=== PATIENT | female | born 1950 | race Caucasian/White ===

== ENCOUNTER 2022-08-14 14:47 | Outpatient (REF) | payer MEDICARE, SELFPAY ==
[2022-08-14 18:07] LABS: Free T4 (Free Thyroxine) 0.81 ng/dL (0.71-1.85); Thyroid Stimulating Hormone 1.43 uIU/mL (0.32-4.0)
== END 2022-08-14 14:48 | disposition home or self-care (01) ==
LOC: HO.LAB 14:47
PROVIDERS: PCP Nurse Practitioner; Visit Provider Internal Medicine
DX: E04.2 Nontoxic multinodular goiter (principal)
CPT/HCPCS: 36415; 84439; 84443; 99202

== ENCOUNTER 2022-11-27 08:38 | Outpatient (REF) | payer MEDICARE, SELFPAY ==
--- NOTE | 2022-11-27 09:46 | P.BOP_ITS ---
Brief Operative Note Date of Service: 11/27/22 Pre-op diagnosis: Multinodular Thyroid Procedure: This is doctor Neva Garrett. This is an ultrasound-guided fine-needle aspiration report. Indication: Multinodular Thyroid Porcedure: Procedure was explained to the patient. Alternatives, the risk and benefits were discussed. Written consent was obtained. A time-out was also obtained. After sterile preparation, 1 ml of 1% lidocaine solution was applied subcutaneously for anesthetic effect. Then Fine-needle aspiration of a left mid pole 1.2 cm thyroid nodule was performed using direct ultrasound guidance to confirm accurate needle placement. Four aspirations were made using 27 gauge needles. An additional two aspirations were made using 25 guage needles. Samples were submitted for cytology. One pass was dedicated for [employer] sequencing authorizer testing. The patient tolerated the procedure well. Aftercare instructions were provided. Impression: Uncomplicated fine needle aspiration biopsy of a left mid pole 1.2 cm thyroid nodule under ultrasound guidance. Surgeon: Neva Garrett, DO Was an Profile Saw Setup Operator used for this Procedure?: No Estimated blood loss (mL): 0
[2022-11-27] MEDS: Lidocaine HCl 1 % MPF 5 ML VIAL 1 ML SUBCUT (11:06)
== END 2022-11-27 08:39 | disposition home or self-care (01) ==
LOC: HO.US 08:38
PROVIDERS: PCP Nurse Practitioner; Visit Provider Internal Medicine
DX: E04.2 Nontoxic multinodular goiter (principal)
CPT/HCPCS: 10005; 88172; 88173; 88177

== ENCOUNTER → 2022-11-27 08:38 | Outpatient (BNV) | payer MEDICARE, SELFPAY | PROVIDERS: PCP Nurse Practitioner; Visit Provider Internal Medicine | DX: E04.2 Nontoxic multinodular goiter (principal) | CPT/HCPCS: 10005 ==

== ENCOUNTER 2022-12-11 12:43 | Outpatient (AMB) | payer MEDICARE, SELFPAY ==
--- NOTE | 2022-12-11 12:43 | A.OFFVIS_ITS ---
Intake Intake Visit Reasons: FNA results Intake Note: FNA results follow up. Animal Shelter Supervisor Required: No Allergies nickel Allergy (Mild, Uncoded 12/11/22 13:10) Rash Medication List - Last Reconciled 12/11/22 by Neva Garrett DO amlodipine mg PO aspirin 81 mg PO DAILY carvedilol mg PO cholecalciferol (vitamin D3) 25 mcg PO DAILY isosorbide mononitrate ER mg PO losartan mg PO nitroglycerin mg sublingual pantoprazole mg PO rosuvastatin mg PO varicella-zoster gE-AS01B (PF) 50 mcg/0.5 mL (Shingrix (PF)) IM vitamin B complex 1 cap PO DAILY HPI HPI Comments History of Present Illness Details 72 YO Female with a PMHx of CAD who is seen in F/U for a thyroid nodule. She was complaining in early 2021 of a tightness in her neck with a pressure like sensation while lying flat. This prompted workup by her PCP, and an US of the thyroid which revealed a solitary 1.2 cm L lobe nodule. She was subsequently referred to Endocrinology. 11/27/2022 she underwent FNA biopsy of the left mid pole 1.2 cm thyroid nodule, with benign cytology. She does report the pressure in her neck while lying flat, but otherwise denies any compressive symptoms. She reports hair loss, dry skin and weight gain. She denies any symptoms of hyperthyroidism. She denies any personal history of head or neck irradiation. She denies any Family history of thyroid cancer. TFTs at goal. [facility] Medical History CAD (coronary artery disease) Heart murmur History of endometrial cancer Multinodular thyroid Surgical History Hx of cataract Hx of gastric bypass Hx of hysterectomy, total Hx of tonsillectomy Family History Father Lung cancer Mother Heart failure Paternal Aunt Thyroid disease Paternal Grandmother Thyroid disease Social History Alcohol intake: current Alcohol intake frequency: holidays/special occasions only Patient Tobacco Use Status: Former Tobacco user Quit Date: 2005 Assessment & Plan Assessment & Plan (1) Multinodular thyroid: Code(s): E04.2 - Nontoxic multinodular goiter Plan: Underwent FNA biopsy of her left mid pole 1.2 cm thyroid nodule with benign cytology. Will F/U in 1 years time for surveillance scans. All of her questions were answered. She is in agreement with this plan of care. I spent 20 minutes in reviewing the record, seeing the patient and documenting in the medical record, including 5 minutes on the phone with the Patient. Telehealth Telehealth Location of provider rendering services: practice address Location of patient: address on file Patient Identification confirmed using: Name, : Yes Telehealth method: voice only Patient verbally consented to treatment: Yes Patient verbally consented to billing insurance company: Yes Patient informed of any privacy concerns related to visit: Yes Coding Level of Care Code Tele Est Pt Level 3 (46289) Diagnoses Multinodular thyroid E04.2
== END 2022-12-11 15:54 | disposition home or self-care (01) ==
LOC: HO.ENCR 12:43
PROVIDERS: PCP Nurse Practitioner; Visit Provider Internal Medicine
DX: E04.2 Nontoxic multinodular goiter (principal)
CPT/HCPCS: 99441

== ENCOUNTER → 2022-12-11 12:43 | Outpatient (BNVA) | payer MEDICARE, SELFPAY | PROVIDERS: PCP Nurse Practitioner; Visit Provider Internal Medicine ==

== ENCOUNTER 2023-12-14 12:49 | Outpatient (REF) | payer MEDICARE, SELFPAY ==
[2023-12-14 15:11] LABS: Thyroid Stimulating Hormone 1.13 uIU/mL (0.32-4.0)
== END 2023-12-14 12:50 | disposition home or self-care (01) ==
LOC: HO.LAB 12:49
PROVIDERS: PCP Nurse Practitioner; Visit Provider Internal Medicine Endocrinology, Diabetes & Metabolism
DX: E04.2 Nontoxic multinodular goiter (principal)
CPT/HCPCS: 36415; 84439; 84443; 99212

== ENCOUNTER 2023-12-14 12:49 | Outpatient (AMB) | payer MEDICARE, SELFPAY ==
--- NOTE | 2023-12-14 12:58 | A.OFFVIS_ITS ---
Vital Signs 12/14/23 12:59 Height 5 ft 3 in Weight 191 lb 12.835 oz BMI 34.0 BP 114/60 Blood Pressure Location Rt brachial Position Sitting Pulse 54 Pulse Source Pulse Oximeter Intake Visit Reasons: NON TOXIC MULTI GOITER-conf Intake Note: Patient present today for Non toxic multi goiter follow up visit. Sustainable Agriculture Faculty Required: No Accompanied by: Self / Same As Patient Allergies nickel Allergy (Mild, Uncoded 12/14/23 13:00) Rash Medication List - Last Reconciled 12/14/23 by Cahrly Pierre MD amlodipine mg PO aspirin 81 mg PO DAILY carvedilol mg PO cholecalciferol (vitamin D3) 25 mcg PO DAILY isosorbide mononitrate ER mg PO losartan mg PO nitroglycerin mg sublingual pantoprazole mg PO rosuvastatin mg PO varicella-zoster gE-AS01B (PF) 50 mcg/0.5 mL (Shingrix (PF)) IM vitamin B complex 1 cap PO DAILY HPI Comments Details: 73 YO Female with a PMHx of CAD who is seen in F/U for a thyroid nodule. The patient last saw Dr. Vivas on 12/11/2022 She was complaining in early 2021 of a tightness in her neck with a pressure like sensation while lying flat. This prompted workup by her PCP, and an US of the thyroid which revealed a solitary 1.2 cm L lobe nodule. She was subsequently referred to Endocrinology. 11/27/2022 she underwent FNA biopsy of the left mid pole 1.2 cm thyroid nodule, with benign cytology. She does report the pressure in her neck while lying flat, but otherwise denies any compressive symptoms. She reports hair loss, dry skin and weight gain. She denies any symptoms of hyperthyroidism. She denies any personal history of head or neck irradiation. She denies any Family history of thyroid cancer. TFTs at [facility]. [facility] Medical History CAD (coronary artery disease) Heart murmur History of endometrial cancer Multinodular thyroid Surgical History Hx of cataract Hx of gastric bypass Hx of hysterectomy, total Hx of tonsillectomy Family History Father Lung cancer Mother Heart failure Paternal Aunt Thyroid disease Paternal Grandmother Thyroid disease Social History Alcohol intake: current Alcohol intake frequency: holidays/special occasions only Patient Tobacco Use Status: Former Tobacco user Physical Exam Vital Signs: Last Vital Signs Pulse 54 12/14/23 12:59 BP 114/60 12/14/23 12:59 BMI result Body Mass Index 34.0 Const Other: Thyroid gland is normal size weighs about 15 g. There are no palpable thyroid nodule Assessment & Plan Assessment & Plan (1) Multinodular thyroid: Code(s): E04.2 - Nontoxic multinodular goiter Category: Medical Plan: This 73-year-old white female with a history of left thyroid nodule status post FNA with benign cytology. She appears to be clinically euthyroid Plan is to check a TSH and free T4. We will also repeat a thyroid ultrasound. Will have patient follow up with Dr. Mccoy an transit department clerk to his joint or practice who is expert and thyroid ultrasound and biopsy Orders: Orders US thyroid 12/13/23 E04.2 - Nontoxic multinodular goiter Thyroid Stimulating Hormone 12/13/23 E04.2 - Nontoxic multinodular goiter Free T4 (Free Thyroxine) 12/13/23 E04.2 - Nontoxic multinodular goiter Coding Level of Care Code Est Pt Level 3 (21406) Diagnoses Multinodular thyroid E04.2
[2023-12-14 12:59] VITALS: BP 114/60; PULSE 54; BMI 34.0
== END 2023-12-14 13:15 | disposition home or self-care (01) ==
PROVIDERS: PCP Nurse Practitioner; Visit Provider Internal Medicine Endocrinology, Diabetes & Metabolism
DX: E04.2 Nontoxic multinodular goiter (principal)
CPT/HCPCS: 99213

== ENCOUNTER 2023-12-23 09:33 | Outpatient (REF) | payer MEDICARE, SELFPAY ==
--- NOTE | ~2023-12-23 | US_ITS ---
EXAMINATION: US THYROID CLINICAL INFORMATION: Nontoxic multinodular goiter. COMPARISON: Ultrasound-guided fine-needle aspiration 11/27/2022. TECHNIQUE: Linear transducer grayscale and color Doppler examination with attention to the region of the thyroid. FINDINGS: SIZE: Measurements of the thyroid lobes and nodules are given in sagittal, anteroposterior and transverse dimensions respectively. Right Thyroid Lobe: 4.7 x 1.5 x 1.7 cm, volume 6.2 mL. Parenchyma: The gland echotexture is homogeneous. Thyroid vascularity is normal. Left Thyroid Lobe: 4.4 x 1.4 x 1.7 cm, volume 5.7 mL. Parenchyma: The gland echotexture is homogeneous. Thyroid vascularity is normal. Isthmus: 0.3 cm in maximum AP dimension. Estimated total number of nodules greater than or equal to 1 cm: 1. Defect Repairer Glassware nodules are described as follows: 1. Location: Left mid. Size: 1.4 x 1.0 x 1.0 cm, volume 0.7 mL. Nodule characteristics: Composition: Solid (2). Echogenicity: Isoechoic (1). Shape: Not taller than wide (0). Margins: Smooth (0). Echogenic Foci: None (0). ACR TI-RADS total points: 3 ACR TI-RADS category: 3 2. Location: Left mid. Size: 0.6 x 0.5 x 0.5 cm, volume 0.08 mL. Nodule characteristics: Composition: Solid/almost completely solid (2). Echogenicity: Cannot be determined (1). Shape: Not taller than wide (0). Margins: Smooth (0). Echogenic Foci: None (0). ACR TI-RADS total points: 3 ACR TI-RADS category: 3 3. Location: Right mid. Size: 0.7 x 0.4 x 0.8 cm, volume 0.1 mL. Nodule characteristics: Composition: Solid (2). Echogenicity: Hypoechoic (2). Shape: Not taller than wide (0). Margins: Smooth (0). Echogenic Foci: Punctate echogenic foci (3). ACR TI-RADS total points: 7 ACR TI-RADS category: 5 4. Location: Right mid. Size: 0.5 x 0.4 x 0.5 cm, volume 0.05 mL. Nodule characteristics: Composition: Solid (2). Echogenicity: Isoechoic (1). Shape: Not taller than wide (0). Margins: Ill-defined (0). Echogenic Foci: None (0). ACR TI-RADS total points: 3 ACR TI-RADS category: 3 5. Location: Right inferior. Size: 0.6 x 0.4 x 0.5 cm, volume 0.5 mL. Nodule characteristics: Composition: Mixed cystic and solid (1). Echogenicity: Isoechoic (1). Shape: Not taller than wide (0). Margins: Smooth (0). Echogenic Foci: Punctate echogenic foci (3). ACR TI-RADS total points: 5 ACR TI-RADS category: 4 NODES: No lymphadenopathy is seen in the tissue surrounding the thyroid gland. US/US thyroid IMPRESSION: Multinodular goiter with only a single nodule over 1 cm in size. The 1.4 cm TR 3 nodule is under the threshold of 1.5 and there is no recommendation for any follow up. ACR TI-RADS RECOMMENDATION REFERENCE: Ultrasound-guided fine-needle aspiration, followup ultrasound, no further follow up. * TR1 (0 point) and TR2 (2 points): No FNA or follow up. * TR3 (3 points): FNA if more than or equal to 2.5 cm in maximum dimension, followup ultrasound in 1, 3 and 5 years if 1.5 to 2.4 cm in maximum dimension. * TR4 (4-6 points): FNA if more than or equal to 1.5 cm in maximum dimension, followup ultrasound in 1, 2, 3 and 5 years if 1 to 1.4 cm in maximum dimension. * TR5 (more than or equal to 7 points): FNA if more than or equal to 1 cm in maximum dimension, followup ultrasound every year for 5 years if 0.5 to 0.9 cm in maximum dimension. * TR3, TR4 or TR5 nodules that are below the size threshold for followup receive no follow up. Electronically signed by: Parvez Main MD 12/30/2023 03:20 PM EDT
== END 2023-12-23 09:34 | disposition home or self-care (01) ==
LOC: HO.US 09:33
PROVIDERS: PCP Nurse Practitioner; Visit Provider Internal Medicine Endocrinology, Diabetes & Metabolism
DX: E04.2 Nontoxic multinodular goiter (principal)
CPT/HCPCS: 76536

== ENCOUNTER 2024-04-08 09:56 | Outpatient (AMB) | payer MEDICARE, SELFPAY ==
[2024-04-08 09:58] VITALS: BP 132/72; PULSE 60; BMI 34.1
--- NOTE | 2024-04-08 09:58 | MHC.OFFVIS ---
Vital Signs 04/08/24 09:58 Height 5 ft 3 in Weight 192 lb 3.889 oz BMI 34.1 BP 132/72 Blood Pressure Location Lt brachial Position Sitting Pulse 60 Pulse Source Pulse Oximeter Intake Visit Reasons: f/u thyroid nodule-f/u with Dr. Mccoy Intake Note: Patient present today for thyroid nodule follow up visit. Chemistry Associate Required: No Accompanied by: Self / Same As Patient Allergies nickel Allergy (Mild, Uncoded 04/08/24 10:02) Rash HPI Comments Details: 74 YO Female with a PMHx of CAD who is seen in F/U for a thyroid nodule. HPI from prior visit She was complaining in early 2021 of a tightness in her neck with a pressure like sensation while lying flat. This prompted workup by her PCP, and an US of the thyroid which revealed a solitary 1.2 cm L lobe nodule. She was subsequently referred to Endocrinology. 11/27/2022 she underwent FNA biopsy of the left mid pole 1.2 cm thyroid nodule, with benign cytology. Interval history Most recent ultrasound 12/23/2023: I reviewed the images myself which showed left midpole 1.4 cm nodule, that has already been biopsied in 2022, and was benign. Other bilateral subcentimeter nodules including a right midpole 0.7 cm labeled as TR 5 category nodule with punctate echogenic foci. To me this looks more like a spongiform nodule . We will plan to repeat an ultrasound in 1 year. She does report the pressure in her neck while lying flat, but otherwise denies any compressive symptoms. She reports hair loss, dry skin and weight gain. She denies any symptoms of hyperthyroidism. She denies any personal history of head or neck irradiation. She denies any Family history of thyroid cancer. Aunt had thyroid disease on synthroid. Physical exam General: sitting comfortably in no acute distress HEENT: normocephalic/atraumatic, EOM intact, moist oral mucosa Neck: supple, symmetrical, palpable 1 cm left sided nodule , no dorsocervical or supraclavicular fat pads Cardiac: normal heart sounds Pulm: normal breath sounds B/L, no added breath sounds Abd: not distended, no tenderness Extremities: no edema, no signs of myxedema Neuro: AAO x3, Speech: normal, no facial droop, moving all 4 extremities Laboratory Tests 08/14/22 12/14/23 15:50 13:38 TSH 1.43 1.13 Free T4 0.81 0.80 US THYROID 12/23/23 CLINICAL INFORMATION: Nontoxic multinodular goiter. COMPARISON: Ultrasound-guided fine-needle aspiration 11/27/2022. TECHNIQUE: Linear transducer grayscale and color Doppler examination with attention to the region of the thyroid. FINDINGS: SIZE: Measurements of the thyroid lobes and nodules are given in sagittal, anteroposterior and transverse dimensions respectively. Right Thyroid Lobe: 4.7 x 1.5 x 1.7 cm, volume 6.2 mL. Parenchyma: The gland echotexture is homogeneous. Thyroid vascularity is normal. Left Thyroid Lobe: 4.4 x 1.4 x 1.7 cm, volume 5.7 mL. Parenchyma: The gland echotexture is homogeneous. Thyroid vascularity is normal. Isthmus: 0.3 cm in maximum AP dimension. Estimated total number of nodules greater than or equal to 1 cm: 1. Caisson Worker nodules are described as follows: 1. Location: Left mid. Size: 1.4 x 1.0 x 1.0 cm, volume 0.7 mL. Nodule characteristics: Composition: Solid (2). Echogenicity: Isoechoic (1). Shape: Not taller than wide (0). Margins: Smooth (0). Echogenic Foci: None (0). ACR TI-RADS total points: 3 ACR TI-RADS category: 3 2. Location: Left mid. Size: 0.6 x 0.5 x 0.5 cm, volume 0.08 mL. Nodule characteristics: Composition: Solid/almost completely solid (2). Echogenicity: Cannot be determined (1). Shape: Not taller than wide (0). Margins: Smooth (0). Echogenic Foci: None (0). ACR TI-RADS total points: 3 ACR TI-RADS category: 3 3. Location: Right mid. Size: 0.7 x 0.4 x 0.8 cm, volume 0.1 mL. Nodule characteristics: Composition: Solid (2). Echogenicity: Hypoechoic (2). Shape: Not taller than wide (0). Margins: Smooth (0). Echogenic Foci: Punctate echogenic foci (3). ACR TI-RADS total points: 7 ACR TI-RADS category: 5 4. Location: Right mid. Size: 0.5 x 0.4 x 0.5 cm, volume 0.05 mL. Nodule characteristics: Composition: Solid (2). Echogenicity: Isoechoic (1). Shape: Not taller than wide (0). Margins: Ill-defined (0). Echogenic Foci: None (0). ACR TI-RADS total points: 3 ACR TI-RADS category: 3 5. Location: Right inferior. Size: 0.6 x 0.4 x 0.5 cm, volume 0.5 mL. Nodule characteristics: Composition: Mixed cystic and solid (1). Echogenicity: Isoechoic (1). Shape: Not taller than wide (0). Margins: Smooth (0). Echogenic Foci: Punctate echogenic foci (3). ACR TI-RADS total points: 5 ACR TI-RADS category: 4 NODES: No lymphadenopathy is seen in the tissue surrounding the thyroid gland. US/US thyroid IMPRESSION: Multinodular goiter with only a single nodule over 1 cm in size. The 1.4 cm TR 3 nodule is under the threshold of 1.5 and there is no recommendation for any follow up. [facility] Medical History CAD (coronary artery disease) Heart murmur History of endometrial cancer Multinodular thyroid Surgical History Hx of cataract Hx of gastric bypass Hx of hysterectomy, total Hx of tonsillectomy Family History Father Lung cancer Mother Heart failure Paternal Aunt Thyroid disease Paternal Grandmother Thyroid disease Social History Alcohol intake: current Alcohol intake frequency: holidays/special occasions only Patient Tobacco Use Status: Former Tobacco user Physical Exam Vital Signs: Last Vital Signs Pulse 60 04/08/24 09:58 BP 132/72 04/08/24 09:58 BMI result Body Mass Index 34.1 Assessment & Plan Assessment & Plan (1) Multinodular thyroid: Code(s): E04.2 - Nontoxic multinodular goiter Category: Medical Plan: This 74-year-old white female with a history of nontoxic multinodular goiter, with a dominant 1.4 cm left thyroid nodule status post FNA in November 2022 with benign cytology. She is clinically euthyroid. Most recent ultrasound 12/23/2023: I reviewed the images myself which showed left midpole 1.4 cm nodule, that has already been biopsied in 2022, and was benign. Other bilateral subcentimeter nodules including a right midpole 0.7 cm labeled as TR 5 category nodule with punctate echogenic foci. To me this looks more like a spongiform nodule . We will plan to repeat an ultrasound in 1 year. Plan: -ordered thyroid ultrasound and TSH and free T4 to be done in 1 year prior to follow up Plan See above Orders: Orders Thyroid Stimulating Hormone 1 Year E04.2 - Nontoxic multinodular goiter Free T4 (Free Thyroxine) 1 Year E04.2 - Nontoxic multinodular goiter US thyroid 1 Year E04.2 - Nontoxic multinodular goiter Patient Instructions: Do ultrasound of your thyroid and blood work 4 to 6 weeks before your appointment with me in 1 year Coding Level of Care Code Est Pt Level 3 (55912) Diagnoses Multinodular thyroid E04.2
== END 2024-04-08 10:16 | disposition home or self-care (01) ==
PROVIDERS: PCP Nurse Practitioner; Visit Provider Student in an Organized Health Care Education/Training Program
DX: E04.2 Nontoxic multinodular goiter (principal)
CPT/HCPCS: 99213

== ENCOUNTER → 2024-04-08 09:56 | Outpatient (BNVA) | payer MEDICARE, SELFPAY | PROVIDERS: PCP Nurse Practitioner; Visit Provider Student in an Organized Health Care Education/Training Program | DX: E04.2 Nontoxic multinodular goiter (principal) | CPT/HCPCS: 99212 ==

== ENCOUNTER 2025-04-03 11:21 | Outpatient (REF) | payer MEDICARE, SELFPAY ==
--- NOTE | ~2025-04-03 | US_ITS ---
EXAMINATION: US THYROID CLINICAL INFORMATION: Nontoxic multinodular goiter. COMPARISON: 12/23/2023 thyroid ultrasound. 11/27/2022 benign biopsy of the left thyroid. TECHNIQUE: Linear transducer grayscale and color Doppler examination with attention to the region of the thyroid. FINDINGS: SIZE: Measurements of the thyroid lobes and nodules are given in sagittal, anteroposterior and transverse dimensions respectively. Right Thyroid Lobe: 4.2 x 1.2 x 1.9 cm, volume 5.0 mL. (Previously 6.2 mL) Parenchyma: The gland echotexture is homogeneous. Thyroid vascularity is normal. Left Thyroid Lobe: 4.6 x 1.7 x 1.5 cm, volume 5.9 mL. (Previously 5.7 mL) Parenchyma: The gland echotexture is homogeneous . Thyroid vascularity is normal. Isthmus: 0.3 cm in maximum AP dimension. Estimated total number of nodules greater than or equal to 1 cm: 1. Spoon Maker nodules are described as follows: 1. Location: Left mid pole. Size: 1.3 x 1.0 x 0.9 cm, volume 0.6 mL.) (Unchanged in size) Nodule characteristics: Composition: Cannot be determined (2). Echogenicity: Cannot be determined (1). Shape: Not taller than wide (0). Margins: Smooth (0). Echogenic Foci: None (0). ACR TI-RADS total points: 3 ACR TI-RADS category: 3 (previously the same) 2. Location: Left Mid pole. Size: 0.6 x 0.5 x 0.4 cm, volume 0.07 mL. (Unchanged in size) Nodule characteristics: Composition: Mixed cystic and solid (1). Echogenicity: Cannot be determined (1). Shape: Not taller than wide (0). Margins: Smooth (0). Echogenic Foci: None (0). ACR TI-RADS total points: 2 ACR TI-RADS category: 2 (previously characterized as TR category 3 3. Location: Right mid pole. Size: 0.6 x 0.4 x 0.5 cm, volume 0.07 mL. (Essentially unchanged in size). Nodule characteristics: Composition: Cannot be determined (2). Echogenicity: Hypoechoic (2). Shape: Not taller than wide (0). Margins: Smooth (0). Echogenic Foci: Punctate echogenic foci (3). ACR TI-RADS total points: 7 ACR TI-RADS category: 5 4. Location: Right lower pole. Size: 0.9 x 0.6 x 0.5 cm, volume 0.1 mL. (Previously 0.05 mL) Nodule characteristics: Composition: Mixed cystic and solid (1). Echogenicity: Cannot be determined (1). Shape: Not taller than wide (0). Margins: Ill-defined (0). Echogenic Foci: None (0). ACR TI-RADS total points: 2 ACR TI-RADS category: 2 (previously categorized as a TR category 4) 5. Location: Right mid pole. Size: 0.5 x 0.5 x 0.5 cm, volume 0.05 mL. (Previously the same) Nodule characteristics: Composition: Solid (2). Echogenicity: Isoechoic (1). Shape: Not taller than wide (0). Margins: Smooth (0). Echogenic Foci: None (0). ACR TI-RADS total points: 3 ACR TI-RADS category: 3 (previously the same) NODES: No lymphadenopathy is seen in the tissue surrounding the thyroid gland. US/US thyroid IMPRESSION: 1. There is an essentially stable 1.3 cm left mid pole TR category 3 nodule. Previous biopsy was benign. Continued Follow-up, if any, should be determined clinically. 2. There are otherwise stable scattered subcentimeter thyroid nodules as detailed above. No new suspicious nodule or enlarging suspicious pulmonary nodule. ACR TI-RADS RECOMMENDATION REFERENCE: Ultrasound-guided fine-needle aspiration, followup ultrasound, no further follow up. * TR1 (0 point) and TR2 (2 points): No FNA or follow up. * TR3 (3 points): FNA if more than or equal to 2.5 cm in maximum dimension, followup ultrasound in 1, 3 and 5 years if 1.5 to 2.4 cm in maximum dimension. * TR4 (4-6 points): FNA if more than or equal to 1.5 cm in maximum dimension, followup ultrasound in 1, 2, 3 and 5 years if 1 to 1.4 cm in maximum dimension. * TR5 (more than or equal to 7 points): FNA if more than or equal to 1 cm in maximum dimension, followup ultrasound every year for 5 years if 0.5 to 0.9 cm in maximum dimension. * TR3, TR4 or TR5 nodules that are below the size threshold for followup receive no follow up. Electronically signed by: Dante Perez MD 04/03/2025 01:51 PM GIGI MALDONADO
== END 2025-04-03 11:22 | disposition home or self-care (01) ==
LOC: HO.US 11:21
PROVIDERS: PCP Nurse Practitioner; Visit Provider Student in an Organized Health Care Education/Training Program
DX: E04.2 Nontoxic multinodular goiter (principal)
CPT/HCPCS: 76536

== ENCOUNTER → 2025-04-03 11:25 | Outpatient (BNV) | payer MEDICARE, SELFPAY | PROVIDERS: PCP Nurse Practitioner; Visit Provider Radiology Diagnostic Radiology | DX: E04.2 Nontoxic multinodular goiter (principal) | CPT/HCPCS: 76536 ==